=== PATIENT | male | born 1985 | race Caucasian/White ===

== ENCOUNTER 2017-01-29 10:52 | Emergency (ER) | payer SELFPAY ==
[2017-01-29 11:13] VITALS: BP 155/94
[2017-01-29] MEDS ORDERED: MOTRIN PO ONE (12:15)
[2017-01-29] MEDS ORDERED: NORCO 5/325 PO ONE (12:15)
--- NOTE | 2017-01-29 12:16 | Emergency Department Report ---
ED Lower Extremity HPI - General Chief Complaint: Extremity Injury, Lower Stated Complaint: SPORTS INJURY TO L FOOT Time Seen by Provider: 01/29/17 12:15 Source: patient Mode of arrival: Ambulatory Limitations: No Limitations - History of Present Illness Initial Comments: Patient reports that he twisted his left foot while playing basketball yesterday which resulted in pain and swelling MD Complaint: foot injury (left) Onset/Timin -: days(s) Injury: Foot: Left Type of Injury: unknown Place: street/outdoors Severity: severe Severity scale (0 -10): 9 Improves With: immobilization Worsens With: weight bearing Context: jumping Other Symptoms: other (none) Associated Symptoms: swelling, able to partially bear weight Treatments Prior to Arrival: cold therapy - Related Data Previous Rx's Medication Instructions Recorded Last Taken Type Ibuprofen [Motrin 800 MG tab] 800 mg PO Q8HR PRN #30 tablet 01/29/17 Unknown Rx Allergies Allergy/AdvReac Type Severity Reaction Status Date / Time No Known Allergies Allergy Unverified 12/28/14 18:46 ED Review of Systems ROS: Stated complaint: SPORTS INJURY TO L FOOT Other details as noted in HPI Constitutional: denies: chills, diaphoresis, fever, malaise, weakness Respiratory: denies: cough, orthopnea, shortness of breath, SOB with exertion, SOB at rest, stridor, wheezing Cardiovascular: denies: as per HPI, chest pain, palpitations, dyspnea on exertion, orthopnea, edema, syncope, paroxysmal nocturnal dyspnea Musculoskeletal: arthralgia (left foot) Neurological: denies: headache, weakness, numbness, paresthesias, confusion Hematological/Lymphatic: denies: easy bleeding, easy bruising, swollen glands ED Past Medical Hx - Past Medical History Previous Medical History?: No - Surgical History Past Surgical History?: No - Social History Smoking Status: Never Smoker Substance Use Type: Alcohol - Medications Home Medications: Home Medications Medication Instructions Recorded Confirmed Last Taken Type Ibuprofen [Motrin 800 MG tab] 800 mg PO Q8HR PRN #30 tablet 01/29/17 Unknown Rx ED Physical Exam - General Limitations: No Limitations General appearance: alert, in no apparent distress - Head Head exam: Present: atraumatic, normocephalic, normal inspection - Neck Neck exam: Present: normal inspection, full ROM. Absent: tenderness, meningismus, lymphadenopathy, thyromegaly - Respiratory Respiratory exam: Present: normal lung sounds bilaterally. Absent: respiratory distress, wheezes, rales, rhonchi, stridor, chest wall tenderness, accessory muscle use, decreased breath sounds, prolonged expiratory - Cardiovascular Cardiovascular Exam: Present: regular rate, normal rhythm, normal heart sounds. Absent: systolic murmur, diastolic murmur, rubs, gallop - Extremities Exam Extremities exam: Present: normal inspection, full ROM, tenderness (left dorsum foot), normal capillary refill. Absent: pedal edema, joint swelling, calf tenderness - Expanded Lower Extremity Exam Left Hip exam: Present: pelvic stability Foot/Toe exam: Present: full ROM (limited by pain), tenderness, swelling. Absent: abrasion, laceration, ecchymosis, deformity, crepidus, dislocation, erythema, amputation, puncture wound, foreign body, calcaneal tenderness, tenderness at base of 5th metatarsal, nail avulsion, subungual hematoma Neuro vascular tendon exam: Present: no vascular compromise. Absent: pulse deficit, abnormal cap refill, motor deficit, sensory deficit, tendon deficit, extremity cold to touch, pallor, abnormal 2-point discrimination, decreased fine /light touch, foot drop, peroneal nerve deficit, significant pain with passive ROM of distal joint Gait: Positive: observed and limited by pain - Back Exam Back exam: Present: normal inspection, full ROM - Neurological Exam Neurological exam: Present: alert, oriented X3, CN II-XII intact, normal gait, reflexes normal. Absent: motor sensory deficit - Psychiatric Psychiatric exam: Present: normal affect, normal mood. Absent: depressed, agitated - Skin Skin exam: Present: warm, dry, intact, normal color. Absent: rash ED Course Vital Signs 01/29/17 01/29/17 11:09 12:26 Temperature 98 F Pulse Rate 100 H Respiratory 16 18 Rate Blood Pressure 155/94 - Reevaluation(s) Reevaluation #1: 01/29/17 12:54 pain medication and imaging study ordered ED Lower Extremity MDM - Lab Data Vital Signs 01/29/17 01/29/17 11:09 12:26 Temperature 98 F Pulse Rate 100 H Respiratory 16 18 Rate Blood Pressure 155/94 - Radiology Data Radiology results: image reviewed INDICATION: Pain with swelling, fall. COMPARISON: None similar. FINDINGS: AP, lateral and oblique left foot radiographs demonstrate mild hallux valgus and small lateral degenerative spur off the first metatarsal head. Intact remainder bones. Mild diffuse soft tissue swelling along dorsum of the foot noted. CONCLUSION: No acute left foot fracture with few degenerative changes and diffuse dorsal soft tissue swelling suspected, as described. Please correlate. - Medical Decision Making During the course of ED, pain medication and radiology study were ordered. The imaging study revealed no acute fracture with few degenerative changes and diffuse dorsal soft tissue swelling. Patient sent home with a post-op shoe, crutches and a prescription for Ibuprofen, instructed to follow up with the selective referral given at discharge, he verbalized understanding - Differential Diagnosis Left Foot Pain, Left Foot Fracture Critical care attestation.: If time is entered above; I have spent that time in minutes in the direct care of this critically ill patient, excluding procedure time. ED Disposition Clinical Impression: Left foot pain Disposition: DC-01 TO HOME OR SELFCARE Is pt being admited?: No Does the pt Need Aspirin: No Condition: Stable Instructions: Arthralgia (ED) Additional Instructions: Take medication as directed. Follow up with the selective referral given at discharge Prescriptions: Ibuprofen [Motrin 800 MG tab] 800 mg PO Q8HR PRN #30 tablet PRN Reason: Pain Referrals: PRIMARY CAREMD [Primary Care Provider] - 3-5 Days BRANDY GORE MD [Staff Physician] - 3-5 Days Forms: Work/School Release Form(ED) Time of Disposition: 14:03
--- NOTE | 2017-01-29 13:45 | XRay Report ---
LEFT FOOT RADIOGRAPHS INDICATION: Pain with swelling, fall. COMPARISON: None similar. FINDINGS: AP, lateral and oblique left foot radiographs demonstrate mild hallux valgus and small lateral degenerative spur off the first metatarsal head. Intact remainder bones. Mild diffuse soft tissue swelling along dorsum of the foot noted. CONCLUSION: No acute left foot fracture with few degenerative changes and diffuse dorsal soft tissue swelling suspected, as described. Please correlate. Thank you for the opportunity to participate in this patient's care.
== END 2017-01-29 14:26 | disposition home or self-care (01) ==
LOC: ED 10:52
DX: M79.672 Pain in left foot (principal); X58.XXXA Exposure to other specified factors, initial encounter; Y93.89 Activity, other specified; Y92.89 Other specified places as the place of occurrence of the external cause; Y99.8 Other external cause status
CPT/HCPCS: 99283

== ENCOUNTER 2018-06-05 17:49 | Emergency (ER) | payer SELFPAY ==
--- NOTE | 2018-06-05 21:32 | Emergency Department Report ---
ED General Adult HPI - General Chief complaint: Extremity Problem,Nontraumatic Stated complaint: LT HAND/LT ARM NUMB Time Seen by Provider: 06/05/18 21:25 Source: patient Mode of arrival: Ambulatory Limitations: No Limitations - History of Present Illness Initial comments: 32-year-old -[place] male with newly diagnosed diabetes who 3 weeks ago is much department complaining of numbness and tingling to the left medial aspect of the arm. No pain is involved. No loss of strength. No decreased range of motion. He reports no trauma. No fever, chills, sweats no polyuria, no nocturia, no increased urinary frequency. His blood sugar has improved from the one from the to 90s to 230s with utilization of metformin 500 twice a day. He's been compliant with his medication regimen Radiation: non-radiation Quality: burning Improves with: none Worsens with: none Associated Symptoms: other ( no trauma). denies: confusion, chest pain, loss of appetite, rash, syncope, weakness Treatments Prior to Arrival: none - Related Data Previous Rx's Medication Instructions Recorded Last Taken Type Ciprofloxacin HCl [Cipro] 500 mg PO BID #10 tablet 05/06/18 Unknown Rx metFORMIN [Glucophage] 500 mg PO BID #60 tablet 05/06/18 Unknown Rx Allergies Allergy/AdvReac Type Severity Reaction Status Date / Time No Known Allergies Allergy Unverified 12/28/14 18:46 ED Review of Systems ROS: Stated complaint: LT HAND/LT ARM NUMB Other details as noted in HPI Constitutional: denies: chills, fever Eyes: denies: eye pain, eye discharge, vision change ENT: denies: ear pain, throat pain Respiratory: denies: cough, shortness of breath, wheezing Cardiovascular: denies: chest pain, palpitations Endocrine: no symptoms reported Gastrointestinal: denies: abdominal pain, nausea, diarrhea Genitourinary: denies: urgency, dysuria Musculoskeletal: denies: back pain, joint swelling, arthralgia Skin: denies: rash, lesions Neurological: denies: headache, weakness, paresthesias Psychiatric: denies: anxiety, depression Hematological/Lymphatic: denies: easy bleeding, easy bruising ED Past Medical Hx - Past Medical History Previous Medical History?: Yes Hx Diabetes: Yes - Surgical History Past Surgical History?: No - Social History Smoking Status: Current Every Day Smoker Substance Use Type: None - Medications Home Medications: Home Medications Medication Instructions Recorded Confirmed Last Taken Type Ciprofloxacin HCl [Cipro] 500 mg PO BID #10 tablet 05/06/18 Unknown Rx metFORMIN [Glucophage] 500 mg PO BID #60 tablet 05/06/18 Unknown Rx ED Physical Exam - General Limitations: No Limitations General appearance: alert, in no apparent distress - Head Head exam: Present: atraumatic, normocephalic - Eye Eye exam: Present: normal appearance - ENT ENT exam: Present: mucous membranes moist - Neck Neck exam: Present: normal inspection - Respiratory Respiratory exam: Present: normal lung sounds bilaterally. Absent: respiratory distress - Cardiovascular Cardiovascular Exam: Present: regular rate, normal rhythm. Absent: systolic murmur, diastolic murmur, rubs, gallop - GI/Abdominal GI/Abdominal exam: Present: soft, normal bowel sounds - Rectal Rectal exam: Present: deferred - Extremities Exam Extremities exam: Present: normal inspection, full ROM, other (full range of motion. Needle Loom Weaver strength 5 over 5 the dilatation capillary refills are brisk. Pulses are 2+ no cyanosis, no clubbing. No tenderness to the to the medial condyle region) - Back Exam Back exam: Present: normal inspection - Neurological Exam Neurological exam: Present: alert, oriented X3 - Psychiatric Psychiatric exam: Present: normal affect, normal mood - Skin Skin exam: Present: warm, dry, intact, normal color. Absent: rash ED Course Vital Signs 06/05/18 17:56 Temperature 97.8 F Pulse Rate 83 Respiratory 18 Rate Blood Pressure 152/94 O2 Sat by Pulse 97 Oximetry Critical care attestation.: If time is entered above; I have spent that time in minutes in the direct care of this critically ill patient, excluding procedure time. ED Disposition Clinical Impression: Neuropathy Disposition: DC-01 TO HOME OR SELFCARE Is pt being admited?: No Does the pt Need Aspirin: No Condition: Stable Instructions: Peripheral Neuropathy (ED) Referrals: DOC,ED, MD [Primary Care Provider] - 3-5 Days [facility] [Provider Group] - 3-5 Days
[2018-06-05 21:42] VITALS: BP 148/91
== END 2018-06-05 21:38 | disposition home or self-care (01) ==
LOC: ED 17:49
DX: G62.9 Polyneuropathy, unspecified (principal)
CPT/HCPCS: 82962; 99282

== ENCOUNTER 2018-12-03 20:25 | Emergency (ER) | payer OTHER ==
[2018-12-03] MEDS ORDERED: TYLENOL PO ONE (22:59)
--- NOTE | 2018-12-03 23:14 | Emergency Department Report ---
HPI - General Chief Complaint: Headache Time Seen by Provider: 12/03/18 22:42 - HPI HPI: 33-year-old -Citizen Of [place] male presents to the emergency department with a complaint of a three-day history of a bilateral temporal headache and some intermittent lightheadedness. He denies any vision change, slurred speech, numbness or paresthesias, any neurological deficits. He has not taken anything for her symptoms prior to presentation. The patient also says that he gets some sharp abdominal pains and cramping when he takes his metformin. The patient did not take his metformin today and therefore does not currently have the abdominal or stomach issues. He was diagnosed with diabetes here back in May and says that he is usually compliant with this medication but he is getting to the point where he feels it is not worth it. He does not have a primary care physician. He has not taken anything for his symptoms prior to presentation. No recent travel or sick contacts at home. He is a tobacco smoker but denies any illicit drug use. ED Past Medical Hx - Past Medical History Previous Medical History?: Yes Hx Diabetes: Yes - Surgical History Past Surgical History?: No - Social History Smoking Status: Current Every Day Smoker Substance Use Type: Alcohol - Medications Home Medications: Home Medications Medication Instructions Recorded Confirmed Last Taken Type Ciprofloxacin HCl [Cipro] 500 mg PO BID #10 tablet 05/06/18 Unknown Rx metFORMIN [Glucophage] 500 mg PO BID #60 tablet 05/06/18 Unknown Rx ED Review of Systems ROS: Stated complaint: LIGHT HEADED RX NOT SITTING WELL Other details as noted in HPI Comment: All other systems reviewed and negative Constitutional: denies: chills, fever Eyes: denies: eye pain, vision change ENT: denies: ear pain, throat pain Respiratory: denies: cough, shortness of breath Cardiovascular: denies: chest pain, palpitations Gastrointestinal: denies: nausea, vomiting Genitourinary: denies: dysuria, discharge Musculoskeletal: denies: back pain, arthralgia Skin: denies: rash, lesions Neurological: headache, other (lightheaded) Physical Exam - Physical Exam Vital Signs: Vital Signs 12/03/18 20:36 Temperature 98 F Pulse Rate 98 H Respiratory 18 Rate Blood Pressure 139/82 O2 Sat by Pulse 96 Oximetry Physical Exam: GENERAL: The patient is well-developed well-nourished. HENT: Normocephalic. Atraumatic. Patient has moist mucous membranes. EYES: Extraocular motions are intact. Pupils equal reactive to light bilaterally. There is some fatigable horizontal nystagmus. NECK: Supple. Trachea is midline. CHEST/LUNGS: Clear to auscultation. There is no respiratory distress noted. HEART/CARDIOVASCULAR: Regular. There is no tachycardia. There is no murmur. ABDOMEN: Abdomen is soft, nontender. Patient has normal bowel sounds. There is no abdominal distention. SKIN: Skin is warm and dry. NEURO: The patient is awake, alert, and oriented. The patient is cooperative. The patient has no focal neurologic deficits. The patient has normal speech. Cranial nerves II through XII grossly intact. No facial asymmetry. No pronator drift or dysmetria. MUSCULOSKELETAL: There is no tenderness or deformity. There is no limitation range of motion. There is no evidence of acute injury. ED Course Vital Signs 12/03/18 20:36 Temperature 98 F Pulse Rate 98 H Respiratory 18 Rate Blood Pressure 139/82 O2 Sat by Pulse 96 Oximetry ED Medical Decision Making - Lab Data Result diagrams: 12/03/18 23:24 12/03/18 23:24 - Radiology Data Radiology results: report reviewed CT head/brain wo con INDICATION / CLINICAL INFORMATION: Headache. TECHNIQUE: Axial CT imaging of the brain was obtained without IV contrast. Coronal and sagittal reformatted imaging obtained and reviewed. All CT scans at this location are performed using CT dose reduction for ALARA by means of automated exposure control. COMPARISON: None available. FINDINGS: No intracranial hemorrhage, mass, or midline shift is noted. No extra-axial fluid collection or suggestion for acute territorial infarction. Ventricular system and basilar cisterns are unremarkable. Visualized paranasal sinuses and mastoid air cells are well aerated and clear. No calvarial abnormality. IMPRESSION: 1. Negative noncontrasted head CT scan. - Medical Decision Making Patient presents to the emergency department with a three-day history of a bitemporal headache. He does not have any focal, motor or sensory deficits and his cranial nerves are intact. A CT scan of the head was done without contrast that does not show any bleed, shift, mass, ischemia, or any other acute process. Patient's labs were unremarkable. His vital signs and stable throughout his ED course. The patient was given a dose of Tylenol and upon reevaluation says he is feeling greatly improved. The patient also says that he was having some problems with abdominal cramping and discomfort when taking metformin. However his blood sugar is controlled. There are no signs of any electrolyte abnormalities, renal insufficiency and he is not currently having any abdominal discomfort. The patient was given some referrals for primary care and we discussed dietary and lifestyle changes to make to assist with his diabetes. He will return to the emergency Department with any worsening of his symptoms or any acute distress. - Differential Diagnosis tension headache, migraine, subarachnoid Critical Care Time: No Critical care attestation.: If time is entered above; I have spent that time in minutes in the direct care of this critically ill patient, excluding procedure time. ED Disposition Clinical Impression: Lightheaded Headache Qualifiers: Headache type: unspecified Headache chronicity pattern: acute headache Intractability: not intractable Qualified Code(s): R51 - Headache Disposition: DC-01 TO HOME OR SELFCARE Is pt being admited?: No Condition: Stable Instructions: Acute Headache (ED), Lightheadedness (ED) Additional Instructions: Please follow up with a primary care physician in the next few days. Return to the emergency Department with any worsening of your symptoms or any acute distress. Try and stay away from foods that are high in sugar, carbohydrates and starches. Keep a blood sugar log. Referrals: MARY CORONADO MD [Staff Physician] - 2-3 Days [facility] [Outside] - 2-3 Days Time of Disposition: 01:21
[2018-12-03 23:45] LABS: Basophils # (Auto) 0.1 K/mm3 (0.0-0.1); Basophils % (Auto) 1.2 % (0.0-1.8); Eosinophils # (Auto) 0.3 K/mm3 (0.0-0.4); Eosinophils % (Auto) 2.5 % (0.0-4.3); Hematocrit 44.2 % (35.5-45.6); Hemoglobin 15.3 gm/dl (11.8-15.2); Lymphocytes # (Auto) 3.3 K/mm3 (1.2-5.4); Mean Corpuscular HGB Conc 35 % (32-34); Mean Corpuscular Volume 88 fl (84-94); Monocytes # (Auto) 0.6 K/mm3 (0.0-0.8); Monocytes % (Auto) 5.8 % (0.0-7.3); Platelet Count 251 K/mm3 (140-440); Red Blood Count 5.01 M/mm3 (3.65-5.03); Red Cell Distribution Width 13.6 % (13.2-15.2)
[2018-12-04 00:05] LABS: Erythrocyte Sedimentation Rate 1 mm/Hr (0-20)
[2018-12-04 00:25] LABS: Alanine Aminotransferase 25 units/L (7-56); Albumin 3.8 g/dL (3.9-5); BUN/Creatinine Ratio 13; Blood Urea Nitrogen 13 mg/dL (9-20); Calcium 9.3 mg/dL (8.4-10.2); Hemolysis Index 10
--- NOTE | 2018-12-04 00:30 | Cat Scan Report ---
CT head/brain wo con INDICATION / CLINICAL INFORMATION: Headache. TECHNIQUE: Axial CT imaging of the brain was obtained without IV contrast. Coronal and sagittal reformatted imag ing obtained and reviewed. All CT scans at this location are performed using CT dose reduction for AL REED by means of automated exposure control. COMPARISON: None available. FINDINGS: No intracranial hemorrhage, mass, or midline shift is noted. No extra-axial fluid collection or sugge stion for acute territorial infarction. Ventricular system and basilar cisterns are unremarkable. Visualized paranasal sinuses and mastoid air cells are well aerated and clear. No calvarial abnormali ty. IMPRESSION: 1. Negative noncontrasted head CT scan. Signer Name: Monica Chamberlain MD Signed: 12/03/2018 11:26 PM Workstation Name: [id number]
[2018-12-04] MEDS ORDERED: TORADOL IM ONE (00:33)
[2018-12-04 01:37] VITALS: BP 137/74
== END 2018-12-04 01:36 | disposition home or self-care (01) ==
LOC: ED 20:25
DX: R42 Dizziness and giddiness (principal); R51 Headache; F17.200 Nicotine dependence, unspecified, uncomplicated; E11.9 Type 2 diabetes mellitus without complications; Z79.84 Long term (current) use of oral hypoglycemic drugs
CPT/HCPCS: 36415; 70450; 80053; 84443; 85025; 85652; 99284

== ENCOUNTER 2020-03-29 18:36 | Emergency (ER) | payer OTHER ==
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
[2020-03-29 19:18] VITALS: BP 129/76
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
== END 2020-03-30 20:30 | disposition home or self-care (01) ==
LOC: ED 18:36
DX: S13.4XXA Sprain of ligaments of cervical spine, initial encounter (principal); E11.9 Type 2 diabetes mellitus without complications; F17.200 Nicotine dependence, unspecified, uncomplicated; Z79.899 Other long term (current) drug therapy; V89.2XXA Person injured in unspecified motor-vehicle accident, traffic, initial encounter; Y93.89 Activity, other specified; Y92.410 Unspecified street and highway as the place of occurrence of the external cause; Y99.8 Other external cause status
CPT/HCPCS: 72040; 99283

== ENCOUNTER 2021-04-18 10:29 | Emergency (ER) | payer SELFPAY ==
[2021-04-18 10:37] VITALS: BP 163/100
[2021-04-18] MEDS ORDERED: SODIUM CHLORIDE 0.9% 1000 ML 1,000 ML IV ONE (10:44)
[2021-04-18] MEDS ORDERED: cefTRIAXone/NS 1 GM/50 ML 1 GM/50 ML BAG IV ONE ×2 (10:44→14:00)
[2021-04-18] MEDS ORDERED: ACETAMINOPHEN 500 MG TAB PO ONE ×2 (11:00→14:00)
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
[2021-04-18] MEDS ORDERED: LIDOCAINE 1%/EPINEPHRINE 1:100,000 VIAL (20 ML) INFILTRATI NR (12:00)
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
[2021-04-18] MEDS ORDERED: SODIUM CHLORIDE IRRI 500 ML 500 ML IR ONE (12:43)
[2021-04-18] MEDS ORDERED: NEOMY 3.5 MG/BACIT 400 UNITS/POLY B 5000 UNITS/GM OINT PACKET TP ONE ×2 (13:06→14:00)
[2021-04-18] MEDS ORDERED: SODIUM CHLORIDE 0.9% 1000 ML 1,000 ML ONE (13:18)
== END 2021-04-18 13:35 | disposition home or self-care (01) ==
LOC: ED 10:29
DX: S16.1XXA Strain of muscle, fascia and tendon at neck level, initial encounter (principal); S01.81XA Laceration without foreign body of other part of head, initial encounter; S63.591A Other specified sprain of right wrist, initial encounter; E11.9 Type 2 diabetes mellitus without complications; V89.2XXA Person injured in unspecified motor-vehicle accident, traffic, initial encounter; Y93.89 Activity, other specified; Y92.89 Other specified places as the place of occurrence of the external cause; Y99.8 Other external cause status
CPT/HCPCS: 12013; 70450; 71101; 72125; 73110; 99284; J0696; J3490; J7030; Q0162

== ENCOUNTER 2021-04-27 18:47 | Emergency (ER) | payer OTHER ==
[2021-04-27 18:55] VITALS: BP 130/76
--- NOTE | 2021-04-27 19:46 | Emergency Department Report ---
ED General Adult HPI - General Chief complaint: Head Injury Stated complaint: Remove Stitches Time Seen by Provider: 04/27/21 19:13 Source: patient Mode of arrival: Ambulatory Limitations: No Limitations - History of Present Illness Initial comments: 35-year-old -[place] male patient presents for suture removal today. Sutures were placed here in the ED on 04/18/2021. Patient states he developed mild swelling the day after the sutures were placed, but denies any increased swelling since, pain, drainage, fever/chills/sweats. He states he is feeling well and states compliance with the antibiotics prescribed Severity scale (0 -10): 0 - Related Data Previous Rx's Medication Instructions Recorded Last Taken Type Ciprofloxacin HCl [Cipro] 500 mg PO BID #10 tablet 05/06/18 Unknown Rx metFORMIN [Glucophage] 500 mg PO BID #60 tablet 05/06/18 Unknown Rx Cyclobenzaprine [Flexeril] 10 mg PO QHS PRN #10 tablet 03/29/20 Unknown Rx Naproxen 500 mg PO Q12H PRN #12 tablet 03/29/20 Unknown Rx Acetaminophen/Codeine [Tylenol 1 tab PO Q4HR PRN #12 tablet 04/18/21 Unknown Rx /Codeine # 3 tab] Metaxalone [Skelaxin] 800 mg PO TID #30 tablet 04/18/21 Unknown Rx cephALEXin [Keflex] 500 mg PO Q12HR #14 cap 04/18/21 Unknown Rx Allergies Allergy/AdvReac Type Severity Reaction Status Date / Time No Known Allergies Allergy Verified 12/03/18 20:31 ED Review of Systems ROS: Stated complaint: Remove Stitches Other details as noted in HPI Constitutional: denies: chills, fever, malaise Skin: denies: change in color Neurological: denies: headache ED Past Medical Hx - Past Medical History Hx Diabetes: Yes - Social History Smoking Status: Never Smoker - Medications Home Medications: Home Medications Medication Instructions Recorded Confirmed Last Taken Type Ciprofloxacin HCl [Cipro] 500 mg PO BID #10 tablet 05/06/18 Unknown Rx metFORMIN [Glucophage] 500 mg PO BID #60 tablet 05/06/18 Unknown Rx Cyclobenzaprine [Flexeril] 10 mg PO QHS PRN #10 tablet 03/29/20 Unknown Rx Naproxen 500 mg PO Q12H PRN #12 tablet 03/29/20 Unknown Rx Acetaminophen/Codeine [Tylenol 1 tab PO Q4HR PRN #12 tablet 04/18/21 Unknown Rx /Codeine # 3 tab] Metaxalone [Skelaxin] 800 mg PO TID #30 tablet 04/18/21 Unknown Rx cephALEXin [Keflex] 500 mg PO Q12HR #14 cap 04/18/21 Unknown Rx ED Physical Exam - General Limitations: No Limitations General appearance: alert, in no apparent distress - Head Head exam: Present: normocephalic, other (Soft tissue swelling noted to forehead with overlying sutures in place; no tenderness to palpation of the area noted; no erythema or induration noted; wound is fully closed with no dehiscence or purulent drainage is noted) ED Course Vital Signs 04/27/21 18:51 Temperature 98.6 F Pulse Rate 96 H Respiratory 16 Rate Blood Pressure 130/76 [Left] O2 Sat by Pulse 99 Oximetry - Procedure Description Procedures done: 7 sutures removed. Patient tolerated procedure well without any immediate complications. No wound dehiscence or purulent drainage noted or bleeding ED Medical Decision Making - Medical Decision Making 35-year-old -[place] male patient presents for suture removal today. Sutures were placed here in the ED on 04/18/2021. Patient states he developed mild swelling the day after the sutures were placed, but denies any increased swelling since, pain, drainage, fever/chills/sweats. He states he is feeling well and states compliance with the antibiotics prescribed Sutures removed without any immediate complications. Swelling on forehead is nontender, not erythemic, and no induration is noted. Likely soft tissue swelling. CT head done on 04/18/2021 did not show any acute abnormalities or foreign bodies. Recommend icing of 40. Patient to follow-up with his PCP in 3- 5 days. Strict return precautions discussed in detail with patient who verbalized understanding. Critical care attestation.: If time is entered above; I have spent that time in minutes in the direct care of this critically ill patient, excluding procedure time. ED Disposition Clinical Impression: Visit for suture removal Disposition: HOME / SELF CARE / HOMELESS Is pt being admited?: No Condition: Stable Instructions: Wound Closure Removal, Care After Referrals: PRIMARY CARE, [Primary Care Provider] - 3-5 Days
== END 2021-04-27 20:08 | disposition home or self-care (01) ==
LOC: ED 18:47
DX: S09.90XD Unspecified injury of head, subsequent encounter (principal); X58.XXXD Exposure to other specified factors, subsequent encounter

== ENCOUNTER 2022-01-28 10:01 | Emergency (ER) | payer SELFPAY ==
--- NOTE | 2022-01-28 10:28 | Emergency Department Report ---
Stated Complaint: DIABETIC/ HAND AND FEET NUMBNESS - HPI History of Present Illness: 36-year-old male past medical history diabetes type 2 reports to the ER with complaints of yvww-vek-[id number] in his hands and feet. Patient ports he has been off his metformin for about 2 weeks now. Metformin 500 mg twice a day. Patient reports no other acute signs or symptoms at this time. Patient also will need a medication refill for his metformin. As well as a referral to local PCP for further management. - ROS Review of Systems: Sensation of xpet-ryj-bkxvaln to hands and feet. - Exam Physical Exam: Nonlabored breathing. Alert and oriented x4. Gait steady. MSE screening note: Focused history and physical exam performed. Due to findings the following was ordered: MAC has been completed. Orders have been placed. Patient will be seen and further evaluated by another provider in the back. ED Disposition for MSE Condition: Stable
[2022-01-28 10:31] VITALS: BP 133/70
[2022-01-28 10:53] LABS: Basophils # (Auto) 0.1 K/mm3 (0.0-0.1); Basophils % (Auto) 1.1 % (0.0-1.8); Eosinophils # (Auto) 0.2 K/mm3 (0.0-0.4); Eosinophils % (Auto) 2.4 % (0.0-4.3); Hematocrit 46.2 % (35.5-45.6); Hemoglobin 15.6 gm/dl (11.8-15.2); Lymphocytes # (Auto) 1.9 K/mm3 (1.2-5.4); Lymphocytes % (Auto) 20.9 % (13.4-35.0); Mean Corpuscular HGB Conc 34 % (32-34); Mean Corpuscular Volume 90 fl (84-94); Monocytes # (Auto) 0.6 K/mm3 (0.0-0.8); Monocytes % (Auto) 6.2 % (0.0-7.3); Platelet Count 261 K/mm3 (140-440); Red Blood Count 5.14 M/mm3 (3.65-5.03); Red Cell Distribution Width 13.3 % (13.2-15.2)
[2022-01-28 11:12] LABS: BUN/Creatinine Ratio 10; Blood Urea Nitrogen 8 mg/dL (9-20); Hemolysis Index 9
--- NOTE | 2022-01-28 11:57 | Emergency Department Report ---
ED General Adult HPI - General Chief complaint: Extremity Problem,Nontraumatic Stated complaint: DIABETIC/ HAND AND FEET NUMBNESS Time Seen by Provider: 01/28/22 11:46 Source: patient Mode of arrival: Ambulatory Limitations: No Limitations - History of Present Illness Initial comments: 36-year-old male past medical history diabetes type 2 reports to the ER with complaints of yumb-vrv-xjjnxkt in his hands and feet. Patient ports he has been off his metformin for about 2 weeks now. Metformin 500 mg twice a day. Patient reports no other acute signs or symptoms at this time. Patient also will need a medication refill for his metformin. As well as a referral to local PCP for further management. Severity scale (0 -10): 0 - Related Data Previous Rx's Medication Instructions Recorded Last Taken Type Ciprofloxacin HCl [Cipro] 500 mg PO BID #10 tablet 05/06/18 Unknown Rx metFORMIN [Glucophage] 500 mg PO BID #60 tablet 05/06/18 Unknown Rx Cyclobenzaprine [Flexeril] 10 mg PO QHS PRN #10 tablet 03/29/20 Unknown Rx Naproxen 500 mg PO Q12H PRN #12 tablet 03/29/20 Unknown Rx Acetaminophen/Codeine [Tylenol 1 tab PO Q4HR PRN #12 tablet 04/18/21 Unknown Rx /Codeine # 3 tab] Metaxalone [Skelaxin] 800 mg PO TID #30 tablet 04/18/21 Unknown Rx cephALEXin [Keflex] 500 mg PO Q12HR #14 cap 04/18/21 Unknown Rx metFORMIN [Glucophage] 500 mg PO BID 30 Days #60 tab 01/28/22 Unknown Rx methOCARBAMOL [Robaxin TAB] 500 mg PO Q6H PRN 7 Days #14 tab 01/28/22 Unknown Rx Allergies Allergy/AdvReac Type Severity Reaction Status Date / Time No Known Allergies Allergy Verified 12/03/18 20:31 ED Review of Systems ROS: Stated complaint: DIABETIC/ HAND AND FEET NUMBNESS Other details as noted in HPI Comment: All other systems reviewed and negative Musculoskeletal: other (Bilateral hands and feet with kppg-qzf-[id number] sensation) ED Past Medical Hx - Past Medical History Previous Medical History?: Yes Hx Diabetes: Yes - Social History Smoking Status: Never Smoker - Medications Home Medications: Home Medications Medication Instructions Recorded Confirmed Last Taken Type Ciprofloxacin HCl [Cipro] 500 mg PO BID #10 tablet 05/06/18 Unknown Rx metFORMIN [Glucophage] 500 mg PO BID #60 tablet 05/06/18 Unknown Rx Cyclobenzaprine [Flexeril] 10 mg PO QHS PRN #10 tablet 03/29/20 Unknown Rx Naproxen 500 mg PO Q12H PRN #12 tablet 03/29/20 Unknown Rx Acetaminophen/Codeine [Tylenol 1 tab PO Q4HR PRN #12 tablet 04/18/21 Unknown Rx /Codeine # 3 tab] Metaxalone [Skelaxin] 800 mg PO TID #30 tablet 04/18/21 Unknown Rx cephALEXin [Keflex] 500 mg PO Q12HR #14 cap 04/18/21 Unknown Rx metFORMIN [Glucophage] 500 mg PO BID 30 Days #60 tab 01/28/22 Unknown Rx methOCARBAMOL [Robaxin TAB] 500 mg PO Q6H PRN 7 Days #14 tab 01/28/22 Unknown Rx ED Physical Exam - General Limitations: No Limitations General appearance: alert, in no apparent distress - Head Head exam: Present: atraumatic, normocephalic - Eye Eye exam: Present: normal appearance - ENT ENT exam: Present: mucous membranes moist - Neck Neck exam: Present: normal inspection - Respiratory Respiratory exam: Present: normal lung sounds bilaterally. Absent: respiratory distress - Cardiovascular Cardiovascular Exam: Present: regular rate, normal rhythm. Absent: systolic murmur, diastolic murmur, rubs, gallop - GI/Abdominal GI/Abdominal exam: Present: soft, normal bowel sounds - Rectal Rectal exam: Present: deferred - Extremities Exam Extremities exam: Present: normal inspection - Back Exam Back exam: Present: normal inspection - Neurological Exam Neurological exam: Present: alert, oriented X3 - Psychiatric Psychiatric exam: Present: normal affect, normal mood - Skin Skin exam: Present: warm, dry, intact, normal color. Absent: rash ED Course Vital Signs 01/28/22 10:23 Temperature 98.3 F Pulse Rate 66 Respiratory 18 Rate Blood Pressure 133/70 [Left] O2 Sat by Pulse 100 Oximetry ED Medical Decision Making - Lab Data Result diagrams: 01/28/22 10:40 01/28/22 10:40 - Medical Decision Making 36-year-old male past medical history diabetes type 2 reports to the ER with complaints of gjpx-fvs-immkvip in his hands and feet. Patient ports he has been off his metformin for about 2 weeks now. Metformin 500 mg twice a day. Patient also reports that the pins and needle sensation only occurs after he l eaves work after being in a cold environment for several hours. 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 Patient reports no other acute signs or symptoms at this time. Patient also will need a medication refill for his metformin. As well as a referral to local PCP for further management. On physical exam no acute clinical findings noted. No acute process noted on CBC or CMP. Patient to be discharged with his metformin 500 twice a day. Patient given outpatient resources for primary care services to properly manage his diabetes. Patient informed likely pain is a new sensation is due to him going in and out of a freezer or working in a cold warehouse for extended period of time. As he reports this is when the jknm-pwe-ppyjqqg in his hands and feet appear after leaving work. Patient agrees with plan of care and verbalized understanding. Patient is stable for discharge home. Vital Signs 01/28/22 10:23 Temperature 98.3 F Pulse Rate 66 Respiratory 18 Rate Blood Pressure 133/70 [Left] O2 Sat by Pulse 100 Oximetry Critical care attestation.: If time is entered above; I have spent that time in minutes in the direct care of this critically ill patient, excluding procedure time. ED Disposition Clinical Impression: Numbness and tingling of both feet, Numbness and tingling in both hands, Medication refill Disposition: 01 HOME / SELF CARE / HOMELESS Is pt being admited?: No Condition: Stable Instructions: Peripheral Neuropathy Prescriptions: metFORMIN [Glucophage] 500 mg PO BID 30 Days #60 tab methOCARBAMOL [Robaxin TAB] 500 mg PO Q6H PRN 7 Days #14 tab PRN Reason: muscle spasm Referrals: [facility] [Outside] - 3-5 Days [facility] [Outside] - 3-5 Days [facility] [Outside] - 3-5 Days [facility] [Outside] - 3-5 Days Time of Disposition: 11:59
== END 2022-01-28 13:02 | disposition home or self-care (01) ==
LOC: ED 10:01
DX: R20.0 Anesthesia of skin (principal); Z76.0 Encounter for issue of repeat prescription; E11.9 Type 2 diabetes mellitus without complications
CPT/HCPCS: 36415; 80048; 82962; 85025; 99283